=== PATIENT | male | born 2000 | race Caucasian/White ===

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

== ENCOUNTER 2020-02-28 18:25 | Emergency (ER) | payer OTHER ==
[2020-02-28 18:46] VITALS: BP 153/97; PULSE 64
[2020-02-28 19:02] LABS: CHLORIDE,CL 100 mEq/L (98-106); SODIUM,NA 138 mEq/L (136-145)
[2020-02-28] MEDS: Alum Hydrox/Mag Hydrox/Simeth 30 ML, Lidocaine 2% 15 ML PO ONE ×2 (19:08)
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
[2020-02-28] MEDS: Iopamidol 755 Mg/ML 100 ML Bottle IVPUSH ONE (19:22)
[2020-02-28] MEDS: fentaNYL 100 MCG/2 ML SDV IVPUSH ONE (20:22)
== END 2020-02-28 20:40 | disposition critical access hospital (66) ==
LOC: CC.ED 18:25
DX: K37 Unspecified appendicitis (principal); I10 Essential (primary) hypertension; Z79.899 Other long term (current) drug therapy
CPT/HCPCS: 36415; 74019; 74177; 80053; 81001; 82150; 85025; 86140; 96374; 99284-25; A9270-GY; J3010; Q9967